=== PATIENT | female | born 1960 | race Two or more races ===

== ENCOUNTER → 2018-01-01 | Outpatient (CLI) | payer OTHER | LOC: M RAD 09:58 | DX: Z12.31 Encounter for screening mammogram for malignant neoplasm of breast (principal); Z78.0 Asymptomatic menopausal state | CPT/HCPCS: 77067 ==

== ENCOUNTER → 2018-05-28 | Outpatient (CLI) | payer OTHER | LOC: M RAD 07:40 | DX: N28.9 Disorder of kidney and ureter, unspecified (principal); M19.90 Unspecified osteoarthritis, unspecified site | CPT/HCPCS: 73100 ==